=== PATIENT | female | born 2000 | race Caucasian/White ===

== ENCOUNTER → 2020-10-04 | Outpatient (CLI) | payer OTHER ==
--- NOTE | 2020-10-04 18:47 | Diagnostic Imaging Report ---
INDICATION: Left hip pain COMPARISON: None FINDINGS: Two views of the left hip demonstrate no fracture or dislocation. Articular surfaces are normal. No degeneration or osseous lesion is seen. IMPRESSION: Negative left hip Dictated by: Dictated on workstation # [id number]
== END ==
LOC: RAD 13:43
PROVIDERS: ATTEND Nurse Practitioner Family
DX: M54.10 Radiculopathy, site unspecified (principal); M25.552 Pain in left hip
CPT/HCPCS: 73502